=== PATIENT | female | born 1955 | race Hispanic/Latino ===

== ENCOUNTER 2017-08-18 15:57 | Emergency (ER) | payer MEDICAID ==
[~2017-08-18 15:57] MED LIST: ACET1TAB12 PO; ALPR1TAB2 PO; ASPI-1005 PO; CLOP75TA14 PO; LISI-617 PO; METO25 PO; SIMV20TA6 PO; TIOT18CA3 IH; TYL3 PO
[2017-08-18] MEDS ORDERED: METHYLPREDNISOLONE SOD SUCC 40MG/ML 1ML ONE (16:58)
[2017-08-18] MEDS ORDERED: BENZONATATE 100 MG CAPSULE PO ONE (16:58)
[2017-08-18 16:59] LABS: BASOPHILS % (AUTO) 0.7 % (0.0-5.0); EOSINOPHILS % (AUTO) 1.3 % (0.0-8.0); HEMATOCRIT 37.5 % (36-48); LYMPHOCYTES % (AUTO) 39.9 % (21.0-51.0); MEAN CORPUSCULAR HEMOGLOBIN 27.7 pg (27.0-33.0); MEAN CORPUSCULAR VOLUME 83.9 fL (79-99); MONOCYTES % (AUTO) 5.5 % (3.0-13.0); NEUTROPHILS % (AUTO) 52.6 % (40.0-77.0); PLATELET COUNT (AUTO) 307 K/uL (130-400); RED BLOOD CELL COUNT(AUTO) 4.47 MIL/uL (4.00-5.50); RED CELL DISTRIBUTION WIDTH 14.2 % (11.0-15.5); WHITE BLOOD COUNT (AUTO) 7.5 K/uL (4.8-10.8)
[2017-08-18] MEDS ORDERED: LIDOCAINE 5% TOPICAL PATCH TP ONE (17:00)
[2017-08-18] MEDS ORDERED: IPRATROPIUM/ALBUTEROL SULFATE 3 ML SOLUTION IH ONE (17:02)
[2017-08-18 17:09] LABS: CREATININE 1.1 mg/dL (0.5-1.5); POTASSIUM 3.4 mmol/L (3.5-5.1)
[2017-08-18] MEDS ORDERED: POTASSIUM CHLORIDE 20 MEQ ERTAB PO ONE (18:14)
[2017-08-18] MEDS ORDERED: AZITHROMYCIN 250 MG TABLET PO ONE (18:14)
== END 2017-08-18 18:47 | disposition home or self-care (01) ==
LOC: EDH 15:57
DX: J44.1 Chronic obstructive pulmonary disease with (acute) exacerbation (principal); I10 Essential (primary) hypertension; E78.5 Hyperlipidemia, unspecified; K08.89 Other specified disorders of teeth and supporting structures; G89.29 Other chronic pain; Z88.0 Allergy status to penicillin; Z95.1 Presence of aortocoronary bypass graft; Z72.0 Tobacco use
CPT/HCPCS: 36415; 71046; 80048; 83880; 84484; 85025; 87804 ×2; 93005; 94640; 96374; 99285; J2920

== ENCOUNTER 2017-10-06 15:07 | Emergency (ER) | payer MEDICAID ==
[2017-10-06 15:48] LABS: BASOPHILS % (AUTO) 0.7 % (0.0-5.0); EOSINOPHILS % (AUTO) 1.6 % (0.0-8.0); HEMATOCRIT 35.5 % (36-48); MEAN CORPUSCULAR HEMOGLOBIN 28.4 pg (27.0-33.0); MEAN CORPUSCULAR HGB CONC 33.8 g/dL (32.0-36.0); MONOCYTES % (AUTO) 4.8 % (3.0-13.0); NEUTROPHILS % (AUTO) 69.9 % (40.0-77.0); PLATELET COUNT (AUTO) 334 K/uL (130-400); RED BLOOD CELL COUNT(AUTO) 4.23 MIL/uL (4.00-5.50); RED CELL DISTRIBUTION WIDTH 14.9 % (11.0-15.5); WHITE BLOOD COUNT (AUTO) 5.8 K/uL (4.8-10.8)
[2017-10-06 16:04] LABS: CREATININE 0.6 mg/dL (0.5-1.5)
[2017-10-06 16:07] LABS: ALBUMIN 3.3 g/dL (3.5-5.0); TOTAL PROTEIN, SERUM 7.7 g/dL (6.0-8.3)
[2017-10-06 16:23] LABS: BILIRUBIN,TOTAL 0.1 mg/dL (0.2-1.0)
[2017-10-06] MEDS ORDERED: KETOROLAC TROMETHAMINE 30MG/ML ONE (16:51)
[2017-10-06] MEDS ORDERED: METHYLPREDNISOLONE SOD SUCC 125MG/2ML VIAL ONE (16:51)
== END 2017-10-06 18:17 | disposition home or self-care (01) ==
LOC: EDH 15:07
DX: R10.9 Unspecified abdominal pain (principal); M54.5 Low back pain; J44.9 Chronic obstructive pulmonary disease, unspecified; E78.5 Hyperlipidemia, unspecified; I10 Essential (primary) hypertension; Z88.0 Allergy status to penicillin; Z72.0 Tobacco use
CPT/HCPCS: 36415; 71045; 80053; 84484; 85025; 93005; 96374; 96375; 99285; J1885; J2930

== ENCOUNTER 2017-12-17 09:34 | Emergency (ER) | payer MEDICAID ==
[2017-12-17 09:58] LABS: BASOPHILS % (AUTO) 1.1 % (0.0-5.0); EOSINOPHILS % (AUTO) 1.4 % (0.0-8.0); LYMPHOCYTES % (AUTO) 38.8 % (21.0-51.0); MEAN CORPUSCULAR HEMOGLOBIN 28.8 pg (27.0-33.0); MEAN CORPUSCULAR HGB CONC 34.1 g/dL (32.0-36.0); MEAN CORPUSCULAR VOLUME 84.3 fL (79-99); MONOCYTES % (AUTO) 5.8 % (3.0-13.0); NEUTROPHILS % (AUTO) 52.9 % (40.0-77.0); PLATELET COUNT (AUTO) 317 K/uL (130-400); RED BLOOD CELL COUNT(AUTO) 4.74 MIL/uL (4.00-5.50); RED CELL DISTRIBUTION WIDTH 14.4 % (11.0-15.5); WHITE BLOOD COUNT (AUTO) 7.9 K/uL (4.8-10.8)
[2017-12-17 10:06] LABS: CREATININE 0.9 mg/dL (0.5-1.5); POTASSIUM 3.9 mmol/L (3.5-5.1)
[2017-12-17] MEDS ORDERED: NITROGLYCERIN 0.4 MG SL TAB SL ONE (10:06)
[2017-12-17] MEDS ORDERED: ASPIRIN 325 MG TABLET ONE (10:06)
[2017-12-17 10:26] LABS: INR 0.97 (0.85-1.15); PARTIAL THROMBOPLASTIN TIME 41.8 SEC (26.3-35.5); PROTHROMBIN TIME 10.2 SEC (9.6-11.6)
[2017-12-17 10:29] LABS: B-TYPE NATRIURETIC PEPTIDE 38 pg/mL (0-100)
[2017-12-17 10:32] LABS: ALBUMIN 3.7 g/dL (3.5-5.0); BILIRUBIN,TOTAL 0.4 mg/dL (0.2-1.0); TOTAL PROTEIN, SERUM 8.3 g/dL (6.0-8.3)
== END 2017-12-17 12:12 | disposition left against medical advice (07) ==
LOC: EDH 09:34
DX: R07.9 Chest pain, unspecified (principal); R06.00 Dyspnea, unspecified; J44.9 Chronic obstructive pulmonary disease, unspecified; E78.5 Hyperlipidemia, unspecified; I10 Essential (primary) hypertension; I25.10 Atherosclerotic heart disease of native coronary artery without angina pectoris; Z95.1 Presence of aortocoronary bypass graft; Z90.710 Acquired absence of both cervix and uterus; Z72.0 Tobacco use; Z88.0 Allergy status to penicillin
CPT/HCPCS: 36415; 71045; 80053; 82550; 83874; 83880; 84484; 85025; 85378; 85610; 85730; 93005; 94761

== ENCOUNTER 2018-08-27 16:44 | Inpatient (IN) | payer MEDICARE, MEDICAID | END 2018-09-10 19:15 | LOC: EDH 16:44 → 3DH 09-03 14:16 → 2CH 09-06 06:51 → 4AH 08-28 10:27 → 3AH 09-08 21:47 → 2BH 09-02 17:14 → 4BH 08-29 19:06 → EDHIP 18:30 | PROC: 5A1935Z Respiratory Ventilation, Less than 24 Consecutive Hours (ICD-10-PCS; principal; ~2018-08-27) | DX: J18.9 Pneumonia, unspecified organism (principal); I21.4 Non-ST elevation (NSTEMI) myocardial infarction; I50.43 Acute on chronic combined systolic (congestive) and diastolic (congestive) heart failure; G93.41 Metabolic encephalopathy; J96.21 Acute and chronic respiratory failure with hypoxia; J96.22 Acute and chronic respiratory failure with hypercapnia; J44.1 Chronic obstructive pulmonary disease with (acute) exacerbation; J44.0 Chronic obstructive pulmonary disease with (acute) lower respiratory infection; F17.210 Nicotine dependence, cigarettes, uncomplicated; I25.10 Atherosclerotic heart disease of native coronary artery without angina pectoris; E66.01 Morbid (severe) obesity due to excess calories ==

== ENCOUNTER 2019-03-07 12:39 | Emergency (ER) | payer MEDICARE ==
[~2019-03-07 12:39] MED LIST changes: -ACET1TAB12 PO; +AEC81 PO; -ALPR1TAB2 PO; -ASPI-1005 PO; -CLOP75TA14 PO; +CLOP75TA32 PO; +CYAN50TA2 PO; +ERGO400C PO; +ICOS1CAP PO; -LISI-617 PO; +LISI2.5T2 PO; +MAGOX PO; +METF-444 PO; +METO-391 PO; -METO25 PO; +PIOG15TA66 PO; +ROSU20TA31 PO; -SIMV20TA6 PO; -TIOT18CA3 IH; -TYL3 PO
[2019-03-07] MEDS ORDERED: LIDOCAINE 5% TOPICAL PATCH TP ONE (13:10)
[2019-03-07] MEDS ORDERED: KETOROLAC TROMETHAMINE 60 MG/2 ML VIAL ONE (13:10)
== END 2019-03-07 14:03 | disposition home or self-care (01) ==
LOC: EDH 12:39
DX: M54.5 Low back pain (principal); G89.29 Other chronic pain; I25.10 Atherosclerotic heart disease of native coronary artery without angina pectoris; J44.9 Chronic obstructive pulmonary disease, unspecified; I10 Essential (primary) hypertension; E78.5 Hyperlipidemia, unspecified; Z88.0 Allergy status to penicillin; Z91.041 Radiographic dye allergy status; Z72.0 Tobacco use
CPT/HCPCS: 96372; 99283; J1885

== ENCOUNTER → 2019-03-30 | Outpatient (CLI) | payer MEDICARE | END | disposition home or self-care (01) | LOC: RAH 09:17 | PROVIDERS: ATTEND Family Medicine | DX: S33.140A Subluxation of L4/L5 lumbar vertebra, initial encounter (principal); M47.816 Spondylosis without myelopathy or radiculopathy, lumbar region; M48.061 Spinal stenosis, lumbar region without neurogenic claudication; X58.XXXA Exposure to other specified factors, initial encounter; Y93.89 Activity, other specified; Y92.89 Other specified places as the place of occurrence of the external cause; Y99.8 Other external cause status | CPT/HCPCS: 72148 ==

== ENCOUNTER 2022-10-20 18:17 | Emergency (ER) | payer OTHER, MEDICARE ==
[~2022-10-20] VITALS: Ht 147.3 cm; Wt 58.5 kg
[~2022-10-20 18:17] MED LIST changes: +LISI2.5T13 PO; -LISI2.5T2 PO; +MAGN400T7 PO; -MAGOX PO
[2022-10-20 19:48] VITALS: BP 119/65
[2022-10-20] MEDS ORDERED: NIRM1TAB5 PO (19:54)
[2022-10-20] MEDS ORDERED: ACET-66 PO (19:54)
[2022-10-20] MEDS ORDERED: GUAIF10 PO (19:54)
[2022-10-20 20:22] LABS: BASOPHILS % (AUTO) 0.4 % (0.0-5.0); EOSINOPHILS % (AUTO) 2.9 % (0.0-8.0); HEMATOCRIT 40.6 % (36-48); LYMPHOCYTES % (AUTO) 15.6 % (21.0-51.0); MEAN CORPUSCULAR HEMOGLOBIN 27.1 pg (27.0-33.0); MEAN CORPUSCULAR HGB CONC 31.8 g/dL (32.0-36.0); MEAN CORPUSCULAR VOLUME 85.3 fL (79-99); MONOCYTES % (AUTO) 12.5 % (3.0-13.0); PLATELET COUNT (AUTO) 283 K/uL (130-400); RED BLOOD CELL COUNT(AUTO) 4.76 MIL/uL (4.00-5.50); RED CELL DISTRIBUTION WIDTH 15.2 % (11.0-15.5); WHITE BLOOD COUNT (AUTO) 6.9 K/uL (4.8-10.8)
[2022-10-20 20:56] LABS: ALBUMIN 3.5 g/dL (3.5-5.0)
[2022-10-20 20:59] LABS: POTASSIUM 2.9 mmol/L (3.5-5.1)
[2022-10-20 21:01] LABS: TOTAL PROTEIN, SERUM 7.9 g/dL (6.0-8.3)
[2022-10-20] MEDS ORDERED: POTASSIUM BICARB/CIT AC 25 MEQ TABLET.EFF PO ONE (21:30)
== END 2022-10-20 22:10 | disposition home or self-care (01) ==
LOC: EDH 18:17
DX: U07.1 COVID-19 (principal); E87.6 Hypokalemia; I10 Essential (primary) hypertension; E11.9 Type 2 diabetes mellitus without complications; E78.00 Pure hypercholesterolemia, unspecified; Z79.82 Long term (current) use of aspirin; Z79.899 Other long term (current) drug therapy; Z90.710 Acquired absence of both cervix and uterus; Z95.1 Presence of aortocoronary bypass graft; Z88.0 Allergy status to penicillin; Z88.8 Allergy status to other drugs, medicaments and biological substances
CPT/HCPCS: 36415; 71045; 80053; 84484; 85025

== ENCOUNTER 2023-12-05 11:38 | Inpatient (IN) | payer MEDICARE ==
[~2023-12-05] VITALS: Ht 149.9 cm; Wt 67.9 kg
[~2023-12-05 11:38] MED LIST changes: +ACET-66 PO; +GUAIF10 PO; +NIRM1TAB5 PO; -ROSU20TA31 PO; +ROSU20TA73 PO
[2023-12-05 11:58] LABS: BASOPHILS # (AUTO) 0.02 K/uL (0.00-0.20); BASOPHILS % (AUTO) 0.3 % (0.0-5.0); EOSINOPHILS # (AUTO) 0.02 K/uL (0.00-0.70); EOSINOPHILS % (AUTO) 0.3 % (0.0-8.0); HEMATOCRIT 39.1 % (36-48); IMMATURE GRANULOCYTE ABSOLUTE 0.01 K/uL (0-1); LYMPHOCYTES # (AUTO) 1.3 K/uL (1.0-4.8); MEAN CORPUSCULAR HGB CONC 31.7 g/dL (32.0-36.0); MEAN CORPUSCULAR VOLUME 88.3 fL (79-99); MONOCYTES # (AUTO) 0.4 K/uL (0.1-1.0); NEUTROPHILS # (AUTO) 4.3 K/uL (1.8-7.7); NEUTROPHILS % (AUTO) 71.2 % (40.0-77.0); PLATELET COUNT (AUTO) 238 K/uL (130-400); RED BLOOD CELL COUNT(AUTO) 4.43 MIL/uL (4.00-5.50); RED CELL DISTRIBUTION WIDTH 14.1 % (11.0-15.5)
[2023-12-05 12:11] LABS: CREATININE 0.7 mg/dL (0.5-1.0); POTASSIUM 3.5 mmol/L (3.5-5.1)
[2023-12-05 12:16] LABS: ALBUMIN 3.3 g/dL (3.5-5.0); BILIRUBIN,TOTAL 0.2 mg/dL (0.2-1.0); TOTAL PROTEIN, SERUM 7.6 g/dL (6.0-8.3)
[2023-12-05] MEDS: LEVOFLOXACIN 750 MG/D5W 150ML BAG IV ONE (16:24)
[2023-12-05] MEDS: SOLU-MEDROL 125MG VIAL IVP ONE (16:24)
[2023-12-05] MEDS: GUAIFENESIN 600 MG TABLET.ER PO ONE (16:24)
[2023-12-05 16:33] VITALS: PULSE 104; RESP 18
[2023-12-05 16:36] LABS: ABG OXYGEN SATURATION 93.3 % (95.0-99.0); ABG PCO2 46 mmHg (32-45); ABG PH 7.349 (7.35-7.450); PO2, ARTERIAL BG 70.6 mmHg (83.0-108.0); VENT MODE, BG NC (ROOM AIR)
[2023-12-05] MEDS: ALBUTEROL 0.083% 2.5 MG/3 ML INH IH ONE ×2 (16:36→16:45)
[2023-12-05 18:19] LABS: RAPID GROUP A STREP negative (NEGATIVE)
[2023-12-05 18:25] LABS: INFLUENZA TYPE A Negative For Type A (NEGATIVE); INFLUENZA TYPE B Negative For Type B (NEGATIVE)
[2023-12-05 18:38] LABS: COVID19 (SARS ANTIGEN RAPID) PRESUMPTIVE NEGATIVE (NEGATIVE)
[2023-12-05] MEDS ORDERED: AMLO-257 PO (18:51)
[2023-12-05] MEDS ORDERED: D-ME118S56 PO (18:51)
[2023-12-05] MEDS ORDERED: LISI20TA24 PO (18:51)
[2023-12-05] MEDS ORDERED: GLUCAGON 1MG KIT 1 MG ML IM PRN (19:30)
[2023-12-05] MEDS ORDERED: ACETAMINOPHEN 325 MG TAB PO PRN (19:30)
[2023-12-05] MEDS ORDERED: HYDRALAZINE 20MG/ML VIAL IV PRN (19:30)
[2023-12-05] MEDS ORDERED: ONDANSETRON 4MG INJ IV PRN (19:30)
[2023-12-05] MEDS ORDERED: DEXTROSE 50%-WATER 50 ML DISP.SYRIN IV PRN (19:30)
[2023-12-05] MEDS ORDERED: POTASSIUM CHLORIDE 20MEQ/100ML 100 ML IV PRN (19:30)
[2023-12-05 20:30] VITALS: PULSE 106; RESP 20; O2SAT 92
[2023-12-05] MEDS: FAMOTIDINE 20MG TAB PO SCH (20:59)
[2023-12-05] MEDS: SOLU-MEDROL 40MG VIAL IVP SCH (20:59)
[2023-12-05] MEDS: POTASSIUM CHLORIDE 10% ELIXIR 20 MEQ/15 ML UDCUP PO PRN (21:00)
[2023-12-05] MEDS: INSULIN HUMULIN R 100 UNIT/ML 3ML SQ SCH (21:00)
[2023-12-05 22:00] VITALS: BP 164/87; PULSE 101; RESP 24
[2023-12-05] MEDS: ALBUTEROL 0.083% 2.5 MG/3 ML INH IH SCH (23:07)
[2023-12-05 23:08] VITALS: PULSE 102; RESP 20
[2023-12-05 23:37] VITALS: BP 150/69; PULSE 97
[2023-12-06] VITALS (12 sets, daily range): BP systolic 134–160; BP diastolic 68–94; PULSE 89–108; RESP 16–20; O2SAT 91–95
[2023-12-06 04:44] LABS: BASOPHILS # (AUTO) 0.01 K/uL (0.00-0.20); BASOPHILS % (AUTO) 0.3 % (0.0-5.0); HEMATOCRIT 36.5 % (36-48); IMMATURE GRANULOCYTE ABSOLUTE 0.01 K/uL (0-1); LYMPHOCYTES # (AUTO) 0.6 K/uL (1.0-4.8); LYMPHOCYTES % (AUTO) 18.5 % (21.0-51.0); MEAN CORPUSCULAR HEMOGLOBIN 27.7 pg (27.0-33.0); MEAN CORPUSCULAR HGB CONC 32.1 g/dL (32.0-36.0); MEAN CORPUSCULAR VOLUME 86.5 fL (79-99); MONOCYTES % (AUTO) 1.3 % (3.0-13.0); NEUTROPHILS # (AUTO) 2.5 K/uL (1.8-7.7); NEUTROPHILS % (AUTO) 79.6 % (40.0-77.0); PLATELET COUNT (AUTO) 253 K/uL (130-400); RED BLOOD CELL COUNT(AUTO) 4.22 MIL/uL (4.00-5.50); RED CELL DISTRIBUTION WIDTH 14.2 % (11.0-15.5); WHITE BLOOD COUNT (AUTO) 3.1 K/uL (4.8-10.8)
[2023-12-06 05:02] LABS: ALBUMIN 3.1 g/dL (3.5-5.0); BILIRUBIN,TOTAL 0.2 mg/dL (0.2-1.0); CREATININE 0.7 mg/dL (0.5-1.0); MAGNESIUM 1.6 mg/dL (1.80-2.40); POTASSIUM 4.4 mmol/L (3.5-5.1); TOTAL PROTEIN, SERUM 7.5 g/dL (6.0-8.3)
[2023-12-06 05:13] LABS: HEMOGLOBIN A1C 6.3 % (4.0-6.0)
[2023-12-06 05:29] LABS: B-TYPE NATRIURETIC PEPTIDE 78 pg/mL (0-100)
[2023-12-06] MEDS: MAGNESIUM 2GM PREMIX 50ML 50 ML IV PRN (06:05)
[2023-12-06] MEDS ORDERED: HYDROCODONE/ACETAMINOPHEN 5/325 MG TAB PO PRN (08:00)
[2023-12-06] MEDS: NICOTINE 21 MG/ 24 HR PATCH TD SCH (08:02)
[2023-12-06] MEDS: ENOXAPARIN SODIUM 30 MG/0.3 ML SQ SCH (08:02)
[2023-12-06] MEDS: HYDROCODONE/ACETAMINOPHEN 10/325 MG TAB PO PRN (08:02)
[2023-12-06] MEDS: FUROSEMIDE 40MG VIAL IV SCH (13:33)
[2023-12-06] MEDS: BUDESONIDE 0.5 MG/2 ML INH IH SCH (18:19)
[2023-12-06] MEDS: LEVOFLOXACIN 500 MG/D5W 100 ML 100 ML IV SCH (19:41)
[2023-12-07] VITALS (13 sets, daily range): BP systolic 109–149; BP diastolic 61–95; PULSE 90–106; RESP 18–20; O2SAT 92–100
[2023-12-07 05:06] LABS: BASOPHILS # (AUTO) 0.01 K/uL (0.00-0.20); BASOPHILS % (AUTO) 0.1 % (0.0-5.0); HEMATOCRIT 42.3 % (36-48); IMMATURE GRANULOCYTE ABSOLUTE 0.01 K/uL (0-1); LYMPHOCYTES # (AUTO) 1.2 K/uL (1.0-4.8); LYMPHOCYTES % (AUTO) 17.1 % (21.0-51.0); MEAN CORPUSCULAR HEMOGLOBIN 27.9 pg (27.0-33.0); MEAN CORPUSCULAR HGB CONC 32.2 g/dL (32.0-36.0); MEAN CORPUSCULAR VOLUME 86.9 fL (79-99); MONOCYTES # (AUTO) 0.3 K/uL (0.1-1.0); MONOCYTES % (AUTO) 4.6 % (3.0-13.0); NEUTROPHILS # (AUTO) 5.3 K/uL (1.8-7.7); NEUTROPHILS % (AUTO) 78.1 % (40.0-77.0); PLATELET COUNT (AUTO) 313 K/uL (130-400); RED BLOOD CELL COUNT(AUTO) 4.87 MIL/uL (4.00-5.50); RED CELL DISTRIBUTION WIDTH 14.1 % (11.0-15.5); WHITE BLOOD COUNT (AUTO) 6.8 K/uL (4.8-10.8)
[2023-12-07 05:20] LABS: CREATININE 0.9 mg/dL (0.5-1.0); PHOSPHORUS 4.2 mg/dL (2.5-4.9); POTASSIUM 3.1 mmol/L (3.5-5.1)
[2023-12-07] MEDS: KCL 20 MEQ ERTAB PO PRN (09:41)
[2023-12-07] MEDS: KCL 20 MEQ ERTAB PO ONE (16:26)
[2023-12-07] MEDS ORDERED: ALBUTEROL 0.083% 2.5 MG/3 ML INH IH PRN (22:30)
[2023-12-07] MEDS: IPRATROPIUM/ALBUTEROL SULFATE 3 ML SOLUTION IH ONE (22:50)
[2023-12-07] MEDS: IPRATROPIUM/ALBUTEROL SULFATE 3 ML SOLUTION IH SCH (23:00)
[2023-12-07] MEDS: SODIUM CHLORIDE 3% FOR INHALATION 4 ML/AMP VIAL.NEB IH ONE (23:00)
[2023-12-08] VITALS (13 sets, daily range): BP systolic 107–151; BP diastolic 47–87; PULSE 96–113; RESP 16–21; O2SAT 91–94
[2023-12-08] MEDS: FUROSEMIDE 40MG VIAL IV SCH (03:51)
[2023-12-08 05:50] LABS: BASOPHILS # (AUTO) 0.01 K/uL (0.00-0.20); BASOPHILS % (AUTO) 0.1 % (0.0-5.0); HEMATOCRIT 43.1 % (36-48); IMMATURE GRANULOCYTE ABSOLUTE 0.05 K/uL (0-1); LYMPHOCYTES # (AUTO) 1.3 K/uL (1.0-4.8); LYMPHOCYTES % (AUTO) 15.3 % (21.0-51.0); MEAN CORPUSCULAR HGB CONC 31.8 g/dL (32.0-36.0); MONOCYTES # (AUTO) 0.3 K/uL (0.1-1.0); MONOCYTES % (AUTO) 3.8 % (3.0-13.0); NEUTROPHILS # (AUTO) 6.7 K/uL (1.8-7.7); NEUTROPHILS % (AUTO) 80.2 % (40.0-77.0); PLATELET COUNT (AUTO) 391 K/uL (130-400); RED BLOOD CELL COUNT(AUTO) 5.07 MIL/uL (4.00-5.50); RED CELL DISTRIBUTION WIDTH 14.2 % (11.0-15.5); WHITE BLOOD COUNT (AUTO) 8.4 K/uL (4.8-10.8)
[2023-12-08 06:11] LABS: ALBUMIN 3.8 g/dL (3.5-5.0); BILIRUBIN,TOTAL 0.3 mg/dL (0.2-1.0); CREATININE 1.1 mg/dL (0.5-1.0); MAGNESIUM 2.2 mg/dL (1.80-2.40); TOTAL PROTEIN, SERUM 8.9 g/dL (6.0-8.3)
[2023-12-08 06:18] LABS: LYMPHOCYTES % (MANUAL) 15 % (22-44); MAN.DIFF COMMENT-IMPRESSION MANUAL DIFFERENTIAL; SEGMENTED NEUTROPHILS % 85 % (40-70); TOTAL CELLS COUNTED 100
[2023-12-08] MEDS: SODIUM CHLORIDE 3% FOR INHALATION 4 ML/AMP VIAL.NEB IH ONE ×2 (07:34→12:24)
[2023-12-08] MEDS: DILTIAZEM 60MG TAB PO SCH (20:17)
[2023-12-08 20:33] LABS: AMPHET/METH SCREEN,URINE NEGATIVE (NEGATIVE); BARBITURATE SCREEN, URINE NEGATIVE (NEGATIVE); BENZODIAZEPINES SCREEN,URINE POSITIVE (NEGATIVE); CANNABINOID SCREEN,URINE NEGATIVE (NEGATIVE); COCAINE SCREEN,URINE NEGATIVE (NEGATIVE); OPIATE SCREEN,URINE POSITIVE (NEGATIVE); PHENCYCLIDINE SCREEN,URINE NEGATIVE (NEGATIVE)
[2023-12-08] MEDS ORDERED: LISINOPRIL 20 MG TABLET PO SCH (21:00)
[2023-12-08] MEDS ORDERED: AMLODIPINE 5 MG TAB PO SCH (21:00)
[2023-12-09] VITALS (18 sets, daily range): BP systolic 104–138; BP diastolic 72–90; PULSE 80–108; RESP 16–22; O2SAT 88–96
[2023-12-09 04:36] LABS: ABG BASE EXCESS 3.2 mmol/L (-2.0-3.0); ABG OXYGEN SATURATION 88.7 % (95.0-99.0); ABG PCO2 43 mmHg (32-45); ABG PH 7.429 (7.35-7.450); PO2, ARTERIAL BG 53.8 mmHg (83.0-108.0); VENT MODE, BG ROOMAIR (ROOM AIR)
[2023-12-09 05:41] LABS: BASOPHILS # (AUTO) 0.01 K/uL (0.00-0.20); BASOPHILS % (AUTO) 0.1 % (0.0-5.0); HEMATOCRIT 45.9 % (36-48); IMMATURE GRANULOCYTE ABSOLUTE 0.05 K/uL (0-1); LYMPHOCYTES # (AUTO) 1.3 K/uL (1.0-4.8); LYMPHOCYTES % (AUTO) 13.3 % (21.0-51.0); MEAN CORPUSCULAR HEMOGLOBIN 27.9 pg (27.0-33.0); MEAN CORPUSCULAR HGB CONC 32.2 g/dL (32.0-36.0); MEAN CORPUSCULAR VOLUME 86.4 fL (79-99); MONOCYTES # (AUTO) 0.3 K/uL (0.1-1.0); MONOCYTES % (AUTO) 2.8 % (3.0-13.0); NEUTROPHILS # (AUTO) 8.1 K/uL (1.8-7.7); NEUTROPHILS % (AUTO) 83.3 % (40.0-77.0); PLATELET COUNT (AUTO) 411 K/uL (130-400); RED BLOOD CELL COUNT(AUTO) 5.31 MIL/uL (4.00-5.50); RED CELL DISTRIBUTION WIDTH 14.3 % (11.0-15.5); WHITE BLOOD COUNT (AUTO) 9.8 K/uL (4.8-10.8)
[2023-12-09 06:10] LABS: ALBUMIN 4.1 g/dL (3.5-5.0); BILIRUBIN,TOTAL 0.3 mg/dL (0.2-1.0); CREATININE 1.4 mg/dL (0.5-1.0); MAGNESIUM 2.4 mg/dL (1.80-2.40); POTASSIUM 4.2 mmol/L (3.5-5.1)
[2023-12-09] MEDS: ATORVASTATIN 20 MG TABLET PO SCH (21:11)
[2023-12-10] VITALS (14 sets, daily range): BP systolic 118–170; BP diastolic 53–98; PULSE 83–105; RESP 18–24; O2SAT 88–96
[2023-12-10] MEDS: HYDRALAZINE 20MG/ML VIAL IV PRN (04:56)
[2023-12-10 05:19] LABS: HEMATOCRIT 42.5 % (36-48); MEAN CORPUSCULAR HEMOGLOBIN 27.3 pg (27.0-33.0); MEAN CORPUSCULAR HGB CONC 32.2 g/dL (32.0-36.0); MEAN CORPUSCULAR VOLUME 84.7 fL (79-99); RED BLOOD CELL COUNT(AUTO) 5.02 MIL/uL (4.00-5.50); RED CELL DISTRIBUTION WIDTH 14.1 % (11.0-15.5); WHITE BLOOD COUNT (AUTO) 9.7 K/uL (4.8-10.8)
[2023-12-10 05:32] LABS: ALBUMIN 3.6 g/dL (3.5-5.0); BILIRUBIN,TOTAL 0.3 mg/dL (0.2-1.0); CREATININE 1.2 mg/dL (0.5-1.0); MAGNESIUM 2.6 mg/dL (1.80-2.40); POTASSIUM 4.2 mmol/L (3.5-5.1)
[2023-12-10] MEDS: ASPIRIN 81 MG EC TAB PO SCH (09:50)
[2023-12-11] VITALS (11 sets, daily range): BP systolic 139–154; BP diastolic 78–92; PULSE 92–118; RESP 18–23; O2SAT 87–96
[2023-12-11 06:26] LABS: HEMATOCRIT 44.8 % (36-48); MEAN CORPUSCULAR HEMOGLOBIN 27.8 pg (27.0-33.0); MEAN CORPUSCULAR HGB CONC 32.1 g/dL (32.0-36.0); MEAN CORPUSCULAR VOLUME 86.5 fL (79-99); RED BLOOD CELL COUNT(AUTO) 5.18 MIL/uL (4.00-5.50); RED CELL DISTRIBUTION WIDTH 14.3 % (11.0-15.5); WHITE BLOOD COUNT (AUTO) 9.6 K/uL (4.8-10.8)
[2023-12-11 06:30] LABS: ALBUMIN 3.5 g/dL (3.5-5.0); BILIRUBIN,TOTAL 0.4 mg/dL (0.2-1.0); MAGNESIUM 2.5 mg/dL (1.80-2.40); POTASSIUM 3.9 mmol/L (3.5-5.1); TOTAL PROTEIN, SERUM 7.5 g/dL (6.0-8.3)
[2023-12-11] MEDS: ACETAMINOPHEN 325 MG TAB PO PRN (11:12)
[2023-12-11] MEDS: HYDROCODONE/ACETAMINOPHEN 10/325 MG TAB PO PRN (11:51)
[2023-12-11] MEDS ORDERED: DILT60TA3 PO (14:54)
[2023-12-11] MEDS ORDERED: NICO-777 TD (14:54)
[2023-12-11] MEDS ORDERED: METF-444 PO (14:54)
[2023-12-11] MEDS ORDERED: PRED10TA23 PO (14:54)
[2023-12-11] MEDS ORDERED: AZIT250T9 PO (14:54)
[2023-12-11] MEDS ORDERED: AEC81 PO (14:54)
[2023-12-11] MEDS ORDERED: ATOR20TA65 PO (14:54)
[2023-12-12 00:18] VITALS: PULSE 89; RESP 20
[2023-12-12 03:06] VITALS: BP 143/87; PULSE 110; RESP 20
[2023-12-12 06:18] VITALS: PULSE 88; RESP 20; O2SAT 93
[2023-12-12 08:00] VITALS: BP 150/80; PULSE 90; RESP 20; O2SAT 97
[2023-12-12 11:30] VITALS: PULSE 90; RESP 20
[2023-12-12 12:00] VITALS: BP_SYST 113; BP_SYST 132; BP_DIAS 58; BP_DIAS 83; PULSE 68; PULSE 90; RESP 20
== END 2023-12-12 15:45 | disposition home or self-care (01) | DRG 291 ==
LOC: EDH 11:38 → EDHIP 19:09 → OBSVTOIN 19:09 → 3DH 21:40
PROVIDERS: ADMIT Hospitalist; ATTEND Hospitalist
DX: I11.0 Hypertensive heart disease with heart failure (principal); I50.43 Acute on chronic combined systolic (congestive) and diastolic (congestive) heart failure; J96.01 Acute respiratory failure with hypoxia; J44.1 Chronic obstructive pulmonary disease with (acute) exacerbation; E44.1 Mild protein-calorie malnutrition; I25.810 Atherosclerosis of coronary artery bypass graft(s) without angina pectoris; E66.01 Morbid (severe) obesity due to excess calories; E11.65 Type 2 diabetes mellitus with hyperglycemia; E78.00 Pure hypercholesterolemia, unspecified; E83.42 Hypomagnesemia; G89.29 Other chronic pain; F41.9 Anxiety disorder, unspecified; I25.2 Old myocardial infarction; F17.210 Nicotine dependence, cigarettes, uncomplicated; Z68.32 Body mass index [BMI] 32.0-32.9, adult; Z95.1 Presence of aortocoronary bypass graft; Z82.49 Family history of ischemic heart disease and other diseases of the circulatory system; Z90.710 Acquired absence of both cervix and uterus; Z79.899 Other long term (current) drug therapy
CPT/HCPCS: 36415; 36600; 71045; 71250; 80048; 80053; 80061; 80305; 82803; 82948; 83036; 83605; 83735; 83880; 84100; 84484; 85025; 85027; 87040; 87071; 87205; 87426; 87804; 87880; 93005; 93306; 94640; 94664; 94667; 94668; 94760; 96365; 96375; G0378; J0360; J1650; J1815; J1940; J1956; J2405; J2919; J2920; J3475